=== PATIENT | male | born 1960 | race Caucasian/White ===

== ENCOUNTER 2019-11-10 08:55 | Outpatient (CLI) | payer BC, SELFPAY ==
--- NOTE | 2019-11-10 09:21 | XR_ITS ---
WS: [id number] Left knee, AP and lateral views, 11/10/2019 Clinical Data: PAIN IN LEFT KNEE Comparison: None. Findings: No fractures or dislocations are seen. There is mild medial joint compartment narrowing. There is a s mall posterior superior patellar spur. The patella is intact. The soft tissues are unremarkable. XR/XR knee LT 1-2V [id number] Impression: 1. 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 2. Negative for fracture or dislocation of the left knee.
--- NOTE | 2019-11-10 09:21 | XR_ITS ---
WS: [id number] Left ankle, 3 views, 11/10/2019 Clinical Data: PAIN IN LEFT ANKLE Comparison: None. Findings: No fractures or dislocations are seen. The ankle mortise is normal. The talus and calcaneus are unrem arkable. No soft tissue swelling over the medial or lateral malleolus is seen. There is an Achilles spur and a plantar spur. XR/XR ankle LT min 3V* [id number] Impression: Negative left ankle.
--- NOTE | 2019-11-10 09:21 | XR_ITS ---
WS: [id number] Left foot, 3 views, 11/10/2019 Clinical Data: PAIN IN LEFT FOOT Comparison: None. Findings: No fractures or dislocations are seen. No bone destruction or erosion is noted. There is minimal join t space narrowing of the left first MP joint. There is a small bunion at the head of the left first m etatarsal.There is an Achilles spur and a plantar spur. XR/XR foot LT min 3V* [id number] Impression: Minimal osteoarthritis of the left first MTP joint with a small bunion at the l eft first metatarsal.
--- NOTE | 2019-11-10 09:21 | XR_ITS ---
WS: [id number] Left hip, AP and frog-leg views, 11/10/2019 Clinical Data: PAIN IN LEFT HIP Comparison: None. Findings: No fractures or dislocations are seen. The hip joint is intact. The soft tissues are not remarkable. The adjacent pelvis is normal. There is a large amount of fecal material in the rectum. XR/XR hip LT 2-3V wo/w pel* [id number] Impression: Negative left hip.
== END 2019-11-10 08:56 | disposition home or self-care (01) ==
LOC: RADWPI 09:01
PROVIDERS: Family Provider Nurse Practitioner; PCP Nurse Practitioner; Visit Provider Nurse Practitioner
DX: M79.672 Pain in left foot (principal); M25.562 Pain in left knee; M25.552 Pain in left hip; M25.572 Pain in left ankle and joints of left foot; M17.12 Unilateral primary osteoarthritis, left knee
CPT/HCPCS: 73502; 73560; 73610; 73630

== ENCOUNTER 2023-12-06 10:05 | Outpatient (CLI) | payer MEDICARE, SELFPAY ==
--- NOTE | 2023-12-06 10:14 | XRR_ITS ---
PROCEDURE INFORMATION: Exam: XR Thoracic Spine Exam date and time: 12/06/2023 10:35 AM Age: 63 years old Clinical indication: Pain in thoracic spine; Patient HX: Pain that radiates from neck down to right flank into lower back, no specific injury; Additional info: Mid back pain TECHNIQUE: Imaging protocol: Radiologic exam of the thoracic spine. Views: 3 views. COMPARISON: CR XR cervical spine 3V* [id number] 12/06/2023 10:35 AM FINDINGS: Bones/joints: Mild lumbar dextroscoliosis. Question of age-indeterminate subtle loss of vertebral body heights at T10, T11 and T12 with associated up to moderate/severe loss of intervening disc heights; if clinical concern for recent fracture, consider nonemergent MRI thoracic Spine follow-up for further characterization. Midthoracic spine DISH. Up to mild loss of remaining thoracic spine disc heights. No listhesis Soft tissues: Unremarkable. XR/XR thoracic spine 3V* [id number] IMPRESSION: Please see above discussion
--- NOTE | 2023-12-06 10:14 | XRR_ITS ---
PROCEDURE INFORMATION: Exam: XR Cervical Spine Exam date and time: 12/06/2023 10:35 AM Age: 63 years old Clinical indication: Cervicalgia; Patient HX: Pain that radiates from neck down to right flank into lower back, no specific injury TECHNIQUE: Imaging protocol: Radiologic exam of the cervical spine. Views: 2 or 3 views. COMPARISON: CR XR thoracic spine 3V* [id number] 12/06/2023 10:35 AM FINDINGS: Bones/joints: Severe loss of C5-C6 disc height and mild loss of C4-C5 disc height with remaining disc and vertebral body heights appear preserved. Minimal grade 1 listhesis at C6-C7. Moderate diffuse facet arthropathy. Soft tissues: Unremarkable. XR/XR cervical spine 3V* [id number] IMPRESSION: No acute findings. See above
--- NOTE | 2023-12-06 10:14 | XRR_ITS ---
PROCEDURE INFORMATION: Exam: XR Lumbosacral Spine Exam date and time: 12/06/2023 10:35 AM Age: 63 years old Clinical indication: Low back pain; Patient HX: Pain that radiates from neck down to right flank into lower back, no specific injury; Additional info: Mid back pain/r flank pain TECHNIQUE: Imaging protocol: Radiologic exam of the lumbosacral spine. Views: 2 or 3 views. COMPARISON: CR XR hip LT 2-3V wo/w pel* [id number] 11/10/2019 9:28 AM FINDINGS: Bones/joints: Straightening of normal lumbar lordosis compatible with back muscle spasm. Rudimentary T12 ribs. Severe loss of L4-L5 disc height and [id number] loss of disc heights at L3-L4 and L5-S1. No acute fracture, listhesis or definite pars defect. Up to moderate/severe lower lumbar facet arthropathy. Up to moderate diffuse endplate hypertrophy. Likely significant foraminal stenoses at each level spanning L3-L4 through L5-S1. Soft tissues: Unremarkable. XR/XR lumbar spine 2-3V* [id number] IMPRESSION: No acute findings. See above
== END 2023-12-06 10:06 | disposition home or self-care (01) ==
PROVIDERS: PCP Nurse Practitioner Family; Visit Provider Nurse Practitioner Family
DX: M51.360 Other intervertebral disc degeneration, lumbar region with discogenic back pain only (principal); M99.63 Osseous and subluxation stenosis of intervertebral foramina of lumbar region; M47.896 Other spondylosis, lumbar region; M47.892 Other spondylosis, cervical region
CPT/HCPCS: 72040; 72072; 72100